=== PATIENT | female | born 2005 | race Caucasian/White ===

== ENCOUNTER 2025-05-27 16:44 | Emergency (ER) | payer SELFPAY ==
--- NOTE | 2025-05-27 16:53 | ECG_ITS ---
[facility]: 2025-05-27 Pat Name: Yashira Martinez Department: Room: Gender: Female [employer] Hunter: : 2005 Requested By: Hannah Torres Order Number: [id number] Sterling MD: Brian David M.D. Measurements Intervals [place] Rate: 103 P: 74 MO: 121 QRS: 24 QRSD: 99 T: 22 QT: 322 QTc: 422 Interpretive Statements SINUS TACHYCARDIA POSSIBLE RIGHT ATRIAL ENLARGEMENT [0.25mV P-WAVE] LEFT ATRIAL ENLARGEMENT [-0.15mV P-WAVE IN V1/V2] POSSIBLE RIGHT VENTRICULAR CONDUCTION DELAY [RSR (QR) IN V1/V2] NONSPECIFIC ST & T-WAVE ABNORMALITY No previous ECG available for comparison Electronically Signed On 05-27-2025 19:41:31 COMMUNICATION TECHNICIAN by Brian David M.D. [email or web address] [id number]
[2025-05-27 16:55] VITALS: BP 148/88; PULSE 100; RESP 18; TEMP 36.9; O2SAT 97; BMI 29.4
--- NOTE | 2025-05-27 18:48 | XRR_ITS ---
PROCEDURE INFORMATION: Exam: XR Chest Exam date and time: 05/27/2025 6:52 PM Age: 19 years old Clinical indication: Chest pressure; Chest pain when she takes a deep breath, PT reports feeling SOB. PT reports being sick. PT reports dry cough. PT reports right side ribs hurt. TECHNIQUE: Imaging protocol: Radiologic exam of the chest. Views: 1 view. COMPARISON: No relevant prior studies available. FINDINGS: Lungs: Unremarkable. No consolidation. Pleural spaces: Unremarkable. No pleural effusion. No pneumothorax. Heart/Mediastinum: Unremarkable. No cardiomegaly. Bones/joints: Unremarkable. XR/XR chest 1V portable [id number] IMPRESSION: No acute findings.
--- NOTE | 2025-05-27 18:57 | ED_ITS ---
HPI - Chest Pain General: Chief Complaint: Chest Pain Stated Complaint: Cp SOB feet swelling sore throat Time Seen by Provider: 05/27/25 18:33 History of Present Illness: Patient is a 19-year-old female with history of GERD, presents to the emergency room due to chest tightness, shortness of breath, difficulty taking a big deep breath. This has been going on for 24 hours. She has related symptoms of a sore throat. She states she has chronic hypertrophied tonsils. No fevers. No known sick contact. Patient recently started what sounds like pantoprazole for her recent GERD diagnosis, and patient thought that her upper respiratory symptoms is worse. She denied any wheezing. Non-smoker. Associated symptoms: Reports dyspnea; Deny abdominal pain, fever(s), nausea, palpitations or vomiting Related Data Previous Rx's ?Medication ?Instructions ?Recorded albuterol sulfate 90 mcg/actuation 2 inh inhalation 6X D PRN shortness 05/27/25 aerosol inhaler (Ventolin HFA) of breath or wheezing # 8.5 grams methylprednisolone 4 mg tablets in See Rx Instructions PO .COMPLEX 05/27/25 a dose pack (Medrol (Baltazar)) #21 ea Allergies Allergy/AdvReac Type Severity Reaction Status Date / Time No Known Allergies Allergy Verified 05/27/25 16:59 Review of Systems General: Reports: 10 or more systems reviewed and unremarkable except in HPI and below Const: Denies: fever(s) or chills Eyes: Denies: change in vision or blurry vision ENMT: Denies: throat pain or mouth pain Card: Denies: chest pain or palpitations Resp: Reports: dyspnea, non-productive cough, wheezing and pain on inspiration GI: Denies: abdominal pain, nausea or vomiting : Denies: flank pain or difficulty voiding Musc: Denies: neck pain, back pain or extremity pain Skin/Breast: Denies: rash or pruritus Neuro: Denies: headache(s) or numbness in extremities Physical Exam Const: COMMON NORMALS: no acute distress, average body habitus and patient oriented x3 HENMT: COMMON NORMALS: normocephalic, atraumatic, hearing grossly normal bilaterally, TM's normal bilaterally and Normal external nose present HEAD & SCALP: normocephalic and atraumatic FACE & SINUS: normal facial exam and sinuses nontender NOSE: Normal external nose present and Normal nares present TYMPANIC MEMBRANE: TM's normal bilaterally MOUTH: Abnormal oral and palatal mucosa present erythematous, edematous and white patches (left tonsil superior bed only) Neck/C-Spine: COMMON NORMALS: full ROM, no lymphadenopathy and supple Lymph: LYMPHATIC: no lymphadenopathy noted Chest: COMMONS NORMALS: normal inspection of the chest and normal palpation of entire chest wall Resp: AUSCULTATION: wheezes (Bases) expiratory wheezes Cardio: COMMON NORMALS: regular rate and regular rhythm RATE: regular rate RHYTHM: regular rhythm GI: COMMON NORMALS: Normal to inspection, nondistended, normoactive bowel sounds present, Soft to palpation, non-tender and No hepatosplenomegaly present PALPATION: Yes Soft to palpation and Yes No hepatosplenomegaly present : COMMON NORMALS: Yes no CVA tenderness BLADDER/KIDNEY EXAM: Yes no CVA tenderness Back/Pelvis: COMMON NORMALS: no CVA tenderness and thoracic and lumbar spine normal to inspection Extremity: COMMON NORMALS: normal to inspection, full ROM and capillary refill normal Neuro: COMMON NORMALS: patient oriented x3 Psych: COMMON NORMALS: mental status grossly normal, Normal thought process present and cooperative THOUGHT PROCESS: Normal thought process present Course Vital Signs: Vital signs: Vital Signs Temperature 98.4 F 05/27/25 16:55 Pulse Rate 118 H 05/27/25 21:01 Respiratory Rate 16 05/27/25 21:01 Blood Pressure 140/71 05/27/25 21:01 Pulse Oximetry 99 05/27/25 21:01 Oxygen Delivery Me thod Room Air 05/27/25 20:48 MDM - Chest Pain Medical Decision Making Patient is a 19-year-old female that reports to the emergency today with 2 days of increasing shortness of breath, and today starting with having a difficulty taking a deep breath. Her influenza, RSV, strep, COVID are all negative. Chest x-ray does not show acute findings. She does have wheezing, and I do suspect a reactive airway with her recent diagnosis of GERD, and viral illness. Will give dexamethasone x 1, send Medrol Dosepak to the pharmacy. All of her questions answered to her satisfaction. Delay care was due to waiting on respiratory to give aerosol treatment. Apologized to patient. Medical Records I reviewed the patient's medical records. Lab Data I reviewed the patient's lab results. Radiology Impressions Chest X-Ray 05/27/25 18:48 IMPRESSION: No acute findings. Laboratory Results Influenza A (PCR) Negative (Negative) 05/27/25 18:56 Influenza Type B (PCR) Negative (Negative) 05/27/25 18:56 RSV (PCR) Negative (Negative) 05/27/25 18:56 SARS-CoV-2 (PCR) Negative (Negative) 05/27/25 18:56 Group A Strep Rapid Negative (Negative) 05/27/25 18:54 All radiology interpretation(s) finalized by discharge ED provider radiology interpretation(s): No acute findings EKG Data EKG 1: Interpretation: Sinus tachycardia, nonspecific ST segment changes without ST segment elevation. Discharge Plan Discharge Patient Disposition: Home Clinical Impression: Viral respiratory illness RAD (reactive airway disease) with wheezing Qualifiers: Asthma severity: mild Asthma persistence: intermittent Asthma complication type: with acute exacerbation Qualified Code(s): J45.21 - Mild intermittent asthma with (acute) exacerbation Condition: Stable Prescriptions: New methylprednisolone [Medrol (Baltazar)] 4 mg tablets,dose pack See Rx Instructions .ROUTE .COMPLEX Qty: 21 0RF Rx Instructions: for 6 days albuterol sulfate [Ventolin HFA] 90 mcg/actuation HFA aerosol inhaler 2 inh inhalation 6XD PRN (Reason: shortness of breath or wheezing) Qty: 8.5 0RF Discharge Orders: Discharge ED (Routine); Ordered 05/27/25 Ordered By: Hannah Torres Discharge Diet: Usual diet Discharge Activity: Resume usual activity Patient Instructions: Asthma - Adult, Viral Syndrome (ED), Patient Portal & Ruddy Instructions Activity Restrictions/Additional Instructions: Return to ED if you have worsening shortness of breath Take inhaler as prescribed Medrol Dosepak at the pharmacy. Utilize as prescribed. Thank you for choosing [facility] for your healthcare needs today. You have been screened and evaluated and felt safe for discharge. Health conditions do change or evolve sometimes and as such it is important that you follow up with your Primary Doctor to be re checked, 3-5 days is a general good time frame for follow up. You are always welcome to return to the ED for re assessment if your symptoms are worsening or you have new concerns Print Language: Georgian Coding Level of Care Code ED Power And Recovery Superintendent for Chg Fwd Heart Score HEART Score Components History: Slightly Suspicous EKG: Non-specific Changes Age: Less than 45 yrs Risk Factors: No Risk Factors Known Troponin: Baseline Trop <16 ng/L HEART Score RESULT HEART Score: 1
[2025-05-27 19:11] LABS: Rapid Strep A Test Negative (Negative)
[2025-05-27 19:38] LABS: Respiratory Syncytial Virus Ce NEGATIVE (Negative); SARS-CoV-2 PCR NEGATIVE (Negative)
[2025-05-27 20:45] VITALS: PULSE 106; RESP 16; O2SAT 93
[2025-05-27 20:48] VITALS: PULSE 116; RESP 16; O2SAT 100
[2025-05-27 21:01] VITALS: BP 140/71; PULSE 118; RESP 16; O2SAT 99
== END 2025-05-27 20:59 | disposition home or self-care (01) ==
PROVIDERS: Emergency Provider Physician Assistant
DX: J98.8 Other specified respiratory disorders (principal); J45.21 Mild intermittent asthma with (acute) exacerbation; Z11.52 Encounter for screening for COVID-19
CPT/HCPCS: 71045; 87081; 87637; 87880; 93005; 94640; 96372; 99284; J1100; J9999